=== PATIENT | male | born 1975 | race Caucasian/White ===

== ENCOUNTER 2016-11-21 13:15 | Emergency (ER) | payer OTHER ==
--- NOTE | 2016-11-21 14:26 | ED.PDOC ---
History of Present Illness - General Chief Complaint: Abdominal Pain Stated Complaint: Abdominal discomfort Time Seen by Provider: 11/21/16 14:08 Source: patient Exam Limitations: no limitations Additional Information: patient is s/p appendectomy - History of Present Illness Initial Comments: Patient presents complaining of abdominal pain for one day. I is LUQ , intermittent, cramping, non-radiating, sudden onset, no previous episodes. Patient had Irvin Fundiplication 6 years ago secondary to ulcerated hernia. He denies taking any antacids. Denies alcoho, tobacco, or recreational drugs. Has had nausea but no vomiting. He says he can't vomit because of the previous surgery. Had one episode of diarrhea today that was non-bloody. He does not feel like eating because of the nausea. No other symptoms. Timing/Duration: 24 hours Severity: mild Improving Factors: nothing Worsening Factors: nothing Associated Symptoms: denies symptoms Allergies/Adverse Reactions: Allergies NO KNOWN ALLERGY Allergy (Unverified 03/03/14 00:26) Home Medications: Ambulatory Orders NK [NK] 11/21/16 Review of Systems - Review of Systems Constitutional: States: no symptoms reported EENTM: States: no symptoms reported Respiratory: States: no symptoms reported Cardiology: States: no symptoms reported Gastrointestinal/Abdominal: States: see HPI Genitourinary: States: no symptoms reported Musculoskeletal: States: no symptoms reported Skin: States: no symptoms reported Neurological: States: no symptoms reported Endocrine: States: no symptoms reported Hematologic/Lymphatic: States: no symptoms reported Past Medical History (General) - Patient Medical History Hx Congestive Heart Failure: No Hx MRSA: No - Vaccination History Hx Influenza Vaccination: No Hx Pneumococcal Vaccination: No Family Medical History - Family History Mother Family History: Unknown Physical Exam - Physical Exam General Appearance: Alert Ears, Nose, Throat: normal ENT inspection Neck: non-tender, full range of motion, supple Respiratory: lungs clear Cardiovascular/Chest: regular rate, rhythm Gastrointestinal/Abdominal: normal bowel sounds, non tender, soft Extremity: no pedal edema Neurologic: no motor/sensory deficits Skin Exam: normal color Lymphatic: no adenopathy Progress - Progress Progress: 11/21/16 18:[address] abdomen and pelvis showed no obstruction nor definite acute disease. GI cocktail helped the patient siginificantly with his symptoms. He was discharged with orders to use Mylanta and Prilosec and to follow up with his primary care physician. Laboratory Tests 11/21/16 11/21/16 11/21/16 13:55 13:55 13:55 WBC 3.8 L RBC 4.12 L Hgb 12.9 L Hct 38.8 L MCV 94.2 H MCH 31.3 H MCHC 33.3 RDW 13.7 Plt Count 206 MPV 8.4 Absolute Neuts (auto) 1.60 L Absolute Lymphs (auto) 1.30 Absolute Monos (auto) 0.60 Absolute Eos (auto) 0.20 Absolute Basos (auto) 0.00 Neutrophils % 41.0 L Lymphocytes % 35.4 Monocytes % 16.6 H Eosinophils % 5.7 H Basophils % 1.3 Sodium 140 Potassium 3.2 L Chloride 109 Carbon Dioxide 27 Anion Gap 7.2 L BUN 10 Creatinine 0.76 BUN/Creatinine Ratio 13.2 Random Glucose 132 H Serum Osmolality 280.3 Calcium 8.3 L Total Bilirubin 0.2 AST 27 ALT 25 Alkaline Phosphatase 65 Serum Total Protein 6.3 L Albumin 3.5 Globulin 2.8 Albumin/Globulin Ratio 1.3 Lipase 33 Departure - Departure Clinical Impression: Abdominal pain, Gastritis Disposition: Discharge to Home or Self Care Condition: Good Departure Forms: ED Discharge - Pt. Copy, Patient Portal Self Enrollment Instructions: DI for Abdominal Pain-Adult Diet: resume usual diet Activity: increase activity as tolerated Referrals: Leonila Potter NP [Primary Care Provider] - 1-2 Weeks Home Medications: Ambulatory Orders NK [NK] 11/21/16 Additional Instructions: Use Mylanta and Prilosec as directed on the packaging. Follow up with your primary care provider in the next two weeks if pain does not resolve.
--- NOTE | 2016-11-21 14:43 | RAD ---
EXAM DESCRIPTION: Abdomen Flat Upright CLINICAL HISTORY: abdominal pain, hx of Irvin Fundiplication COMPARISON: None. FINDINGS: AP supine and upright views of the abdomen show a nonspecific, nonobstructive bowel gas pattern with no evidence for free intraperitoneal air. Mild small bowel air-fluid levels are seen. Mildly air-filled dilated colon throughout the abdomen is seen with scattered air-fluid levels. No obvious organomegaly is seen. No abnormal calcifications are seen in the expected location of the renal collecting systems. Visualized lung bases are unremarkable. IMPRESSION: Nonspecific abdominal series Findings could represent ileus. Electronically signed by: Joaquim Meraz MD 11/21/2016 2:43 PM CDT
--- NOTE | 2016-11-21 16:44 | CT ---
EXAM DESCRIPTION: Abdomen/Pelvis w/wo Contrast CLINICAL HISTORY: abdominal pain COMPARISON: None Available TECHNIQUE: Contiguous axial images of the abdomen and pelvis were obtained followed by reconstruction images. This exam was performed according to our departmental dose-optimization program, which includes automated exposure control, adjustment of the mA and/or kV according to patient size and/or use of iterative reconstruction technique. FINDINGS: The liver, spleen, pancreas and kidneys are within normal limits. There is no hydronephrosis or renal stones. The gallbladder is unremarkable by CT criteria. Adrenal glands are within normal limits. Aorta is of normal caliber and tapering. There is no free fluid in the abdomen or pelvis. There is no bowel obstruction. There is no stranding of the mesenteric fat to suggest an inflammatory response. There is no pericecal inflammation. Calcifications within the pelvis compatible with phleboliths. Air-fluid levels within the colon could be secondary to a diarrheal state. The appendix was not visualized. IMPRESSION: Air-fluid levels within the colon could be secondary to a diarrheal state. Electronically signed by: Justino Baker MD 11/21/2016 4:44 PM CDT
[2016-11-21] MEDS ORDERED: LIDOCAINE VIS-MYLANTA 30 ML UD PO ONE (17:38)
[2016-11-21 18:39] VITALS: O2SAT 100
[2016-11-21 18:40] VITALS: BP 115/84; TEMP 98
== END 2016-11-21 18:35 | disposition home or self-care (01) ==
LOC: ER 13:15
DX: K29.70 Gastritis, unspecified, without bleeding (principal)

== ENCOUNTER 2017-12-25 16:20 | Emergency (ER) | payer SELFPAY ==
[~2017-12-25 16:20] MED LIST: LIDOCAINE 1% 50 ML VIAL INJ ONE
[2017-12-25] MEDS ORDERED: POVIDONE IODINE 10 % 15 ML UD TOP ONE (16:28)
[2017-12-25 16:33] VITALS: TEMP 98.1; O2SAT 100
--- NOTE | 2017-12-25 16:43 | ED.PDOC ---
History of Present Illness - General Chief Complaint: Laceration Stated Complaint: Laceration to L 5th finger Time Seen by Provider: 12/25/17 16:39 Source: patient Exam Limitations: no limitations - History of Present Illness Initial Comments: John Vargas 42 y/o male stated that he was using pry bar working it slipped and hit left 5th digit sustaining lacareted wound 5th digit left with sharp pain. Timing/Duration: just prior to arrival Severity: mild Location: hands - finger 5th digit Improving Factors: rest Worsening Factors: movement Associated Symptoms: other - see hpi Allergies/Adverse Reactions: Allergies NO KNOWN ALLERGY Allergy (Verified 12/25/17 16:30) Home Medications: Ambulatory Orders Acetamin W/Cod #3 Tab [Tylenol w/CODEINE #3] 1 ea PO Q8HRS PRN #5 tab 12/25/17 Amoxicillin [Amoxil] 1,000 mg PO BID 5 Days #20 cap 12/25/17 Review of Systems - Review of Systems Musculoskeletal: States: see HPI Skin: States: see HPI All other Systems: Reviewed and Negative, No Change from Baseline Past Medical History (General) - Patient Medical History Hx Stroke: No Hx Congestive Heart Failure: No Hx Diabetes: No Hx Gastroesophageal Reflux: - Had a fundo-plycation Hx Cancer: No Hx Hepatitis C: No Hx MRSA: No Surgical History: appendectomy, other - Irvin fundoplication - Vaccination History Hx Tetanus, Diphtheria Vaccination: - 12/25/17 Hx Influenza Vaccination: No Hx Pneumococcal Vaccination: No - Social History Hx Tobacco Use: No Hx Chewing Tobacco Use: Yes - 2 cans per week Hx Alcohol Use: No Hx Substance Use: No Hx Substance Use Treatment: No Hx Depression: No Hx Physical Abuse: No Hx Emotional Abuse: No Hx Suspected Abuse: No Family Medical History - Family History Mother Family History: No Known Living Status: Still Living Physical Exam - Physical Exam General Appearance: Alert, Comfortable, No apparent distress Eyes, Ears, Nose, Throat Exam: normal ENT inspection Neck: supple, normal inspection Cardiovascular/Chest: regular rate, rhythm, no murmur Respiratory: lungs clear Gastrointestinal/Abdominal: non tender, soft Back Exam: normal inspection Extremity: no pedal edema, no calf tenderness Neurologic: no motor/sensory deficits, alert, oriented x 3 Skin Exam: warm/dry Skin Problem Location: other - laceration 5th digit left 1.5 cm bleeding Skin Character: other - see hpi Progress - Progress Progress: 12/25/17 16:45 Vital Signs - 8 hr 12/25/17 16:20 Temperature 98.1 F Pulse Rate [ 90 Left Radial] Respiratory 20 Rate Blood Pressure 123/76 [Right Arm] O2 Sat by Pulse 100 Oximetry - EKG/XRAY/CT XRAY: 5th digit left-no fracture Procedures - Laceration/Wound Repair Left Finger Wound Length (cm): 1.5 - 5th digit left Wound's Depth, Shape: irregular Wound Explored: no foreign body removed Irrigated w/ Saline (cc's): 30 Betadine Prep?: No - hibiclens Anesthesia: 1% Lidocaine Volume Anesthetic (cc's): 3 - metacarpal block Number of Sutures: 3 Sterile Dressing Applied?: Yes Departure - Departure Clinical Impression: Laceration of finger Qualifiers: Encounter type: initial encounter Finger: little finger Damage to nail status: without damage Foreign body presence: without foreign body Laterality: left Qualified Code(s): S61.217A - Laceration without foreign body of left little finger without damage to nail, initial encounter Time of Disposition: 17:18 Disposition: Discharge to Home or Self Care Condition: Good Departure Forms: ED Discharge - Pt. Copy, Patient Portal Self Enrollment Instructions: DI for Laceration Repair -- Hoda Referrals: Bud Bell MD [Primary Care Provider] - 1-2 Weeks Prescriptions: Acetamin W/Cod #3 Tab [Tylenol w/CODEINE #3] 1 ea PO Q8HRS PRN #5 tab PRN Reason: Pain Amoxicillin [Amoxil] 1,000 mg PO BID 5 Days #20 cap Home Medications: Ambulatory Orders Acetamin W/Cod #3 Tab [Tylenol w/CODEINE #3] 1 ea PO Q8HRS PRN #5 tab 12/25/17 Amoxicillin [Amoxil] 1,000 mg PO BID 5 Days #20 cap 12/25/17 Additional Instructions: REMOVAL OF HODA January 05/[facility] [place]
[2017-12-25] MEDS ORDERED: NEOMYCIN-BACITRACIN-POLYMYXIN 0.9 GM UD TOP ONE (17:03)
--- NOTE | 2017-12-25 17:03 | RAD ---
EXAM DESCRIPTION: Fingers,Left CLINICAL HISTORY: Lac L 5th digit COMPARISON: None. TECHNIQUE: 3 views left FINDINGS: No bone or joint abnormality is seen. Soft tissue swelling is seen adjacent to the proximal interphalangeal joint. No radiopaque foreign body is observed in the soft tissues. IMPRESSION: Soft tissue swelling is observed without evidence of fracturing. Electronically signed by: Randy Segura MD 12/25/2017 5:01 PM CDT
[2017-12-25] MEDS: AMOXICILLIN 500 MG CAP PO ONE (17:10)
[2017-12-25] MEDS: TETANUS,DIPHTHERIA,PERTUSSIS 1 EA SYG IM ONE (17:16)
[2017-12-25 17:53] VITALS: BP 102/84
== END 2017-12-25 17:40 | disposition home or self-care (01) ==
LOC: ER 16:20
DX: S61.217A Laceration without foreign body of left little finger without damage to nail, initial encounter (principal); Z23 Encounter for immunization; Z87.891 Personal history of nicotine dependence; W27.8XXA Contact with other nonpowered hand tool, initial encounter; Y92.9 Unspecified place or not applicable

== ENCOUNTER 2019-02-26 20:25 | Emergency (ER) | payer BC, SELFPAY ==
[2019-02-26] MEDS ORDERED: ONDANSETRON ODT 8 MG TAB SL ONE (20:34)
[2019-02-26] MEDS ORDERED: SODIUM CHLORIDE 0.9% 1000ML 1,000 ML IVS ONE (20:34)
[2019-02-26] MEDS ORDERED: ALUMINUM & MAGNESIUM HYDROXIDE 30 ML UD PO ONE (20:34)
[2019-02-26] MEDS ORDERED: PANTOPRAZOLE SODIUM IV 40 MG VIAL IV ONE (20:36)
[2019-02-26] MEDS ORDERED: DEXTROSE 50% 25 GM/50 ML SYG IV ONE (21:08)
[2019-02-26] MEDS ORDERED: DEXTROSE 10% 1000ML 1,000 ML IVS ONE (21:21)
[2019-02-26] MEDS ORDERED: DEXTROSE 10% 1000ML 1,000 ML IVS PRN (21:27)
--- NOTE | 2019-02-26 21:49 | RAD ---
EXAM: XR Abdomen 2 Views With XR Chest CLINICAL HISTORY: acute nv diaphoresis, hx of Irvin TECHNIQUE: Frontal view of the chest, frontal view of the abdomen/pelvis and upright or decubitus view of the abdomen. COMPARISON: No relevant prior studies available. FINDINGS: Limitations: None. Lungs: Unremarkable. No consolidation. Pleural space: Unremarkable. No pneumothorax. Heart: Unremarkable. No cardiomegaly. Mediastinum: Unremarkable. Intraperitoneal space: No free air. Gastrointestinal tract: Redundant sigmoid colon noted with moderate amounts of stool in the other colonic segments. No distention. There is an air-fluid level in the stomach. Bones/joints: Unremarkable. IMPRESSION: 1. Nonobstructive intestinal gas pattern. 2. No cardiopulmonary disease identified. Electronically signed by: Brooke Guevara MD 02/26/2019 9:48 PM CDT
--- NOTE | 2019-02-26 23:39 | ED.PDOC ---
History of Present Illness - General Chief Complaint: Exposure to Heat or Cold Stated Complaint: cold chils, nausea, dizzy Time Seen by Provider: 02/26/19 20:26 Source: patient Exam Limitations: no limitations - History of Present Illness Initial Comments: the patient is a 43-year-old male presenting to the emergency room secondary to an episode of weakness and shaking as well as nausea and vomiting came on just before he was about to eat supper. The patient is very thin. He was feeling okay prior to that. He is diaphoretic and a little bit dazed upon arrival. Blood sugar was 53 upon arrival. D10 was started as D50 is unavailable.he patient has been working outside and most of the day in the heat. No syncope. No chest pain. No abdominal pain. He has apparently had a Irvin fundoplication done in the past. He is not currently on any acid reducing medications. Timing/Duration: 1/2 hour Severity: moderate Improving Factors: nothing Worsening Factors: nothing Associated Symptoms: diaphoresis, loss of appetite, malaise, nausea/vomiting Allergies/Adverse Reactions: Allergies NO KNOWN ALLERGY Allergy (Verified 12/25/17 16:30) Home Medications: Ambulatory Orders Acetamin W/Cod #3 Tab [Tylenol w/CODEINE #3] 1 ea PO Q8HRS PRN #5 tab 12/25/17 Amoxicillin [Amoxil] 1,000 mg PO BID 5 Days #20 cap 12/25/17 Famotidine 20 mg PO BID #60 tab 02/26/19 Review of Systems - Review of Systems Constitutional: States: malaise, weakness - generalized EENTM: States: no symptoms reported Respiratory: States: no symptoms reported Cardiology: States: no symptoms reported Gastrointestinal/Abdominal: States: nausea, vomiting. Denies: abdominal pain, constipation, diarrhea Genitourinary: States: no symptoms reported Musculoskeletal: States: no symptoms reported Skin: States: no symptoms reported Neurological: States: tremors, weakness Endocrine: States: excessive sweating, flushing All other Systems: No Change from Baseline Past Medical History (General) - Patient Medical History Hx Stroke: No Hx Congestive Heart Failure: No Hx Diabetes: No Hx Gastroesophageal Reflux: - Had a fundo-plycation Hx Cancer: No Hx Hepatitis C: No Hx MRSA: No Surgical History: appendectomy, other - Vaccination History Hx Tetanus, Diphtheria Vaccination: No Hx Influenza Vaccination: No Hx Pneumococcal Vaccination: No - Social History Hx Tobacco Use: No Hx Chewing Tobacco Use: Yes - 2 cans per week Hx Alcohol Use: Yes Hx Substance Use: No Hx Substance Use Treatment: No Hx Depression: No Hx Physical Abuse: No Hx Emotional Abuse: No Hx Suspected Abuse: No Family Medical History - Family History Mother Family History: No Known Living Status: Still Living Physical Exam - Physical Exam General Appearance: Alert, Obvious distress, Other - diaphoretic and jittery Eye Exam: bilateral normal Ears, Nose, Throat: hearing grossly normal, normal ENT inspection Neck: full range of motion, supple Respiratory: lungs clear, normal breath sounds, no respiratory distress, no accessory muscle use Cardiovascular/Chest: normal peripheral pulses, regular rate, rhythm, no edema Peripheral Pulses: radial,right: 2+, radial,left: 2+, dorsalis pedis,right: 2+, dorsalis pedis,left: 2+ Gastrointestinal/Abdominal: non tender, soft Rectal Exam: deferred Back Exam: no CVA tenderness, no vertebral tenderness Extremity: non-tender, normal inspection, no pedal edema, normal capillary refill Neurologic: gas leak tester II-XII nml as tested, alert, oriented x 3, other - he has mildly dazed Skin Exam: diaphoresis Comments: Vital Signs - 24 hr 02/26/19 02/26/19 20:38 22:25 Temperature 96.5 F L 97.5 F L Pulse Rate [ 98 H 81 left] Respiratory 20 16 Rate Blood Pressure 166/89 138/75 [left] O2 Sat by Pulse 99 97 Oximetry Progress - Progress Progress: 02/26/19 23:41 the patient's a 43-year-old male presenting to the emergency room secondary to nausea and vomiting and diaphoresis. The patient is found to have hypoglycemia. This has been corrected with glucose supplementation. The patient needs to eat regularly. He also needs to avoid any stimulant type medication. He needs to keep well hydrated. No other significant pathology was found in the workup today. He is going to be placed on Pepcid twice daily for the next month for any ongoing gastritis. ER warnings were given. Keep routine follow-up with primary care doctor. - Results/Orders Results/Orders: Laboratory Tests 02/26/19 02/26/19 02/26/19 20:36 20:40 20:40 WBC RBC Hgb Hct MCV MCH MCHC RDW Plt Count MPV Absolute Neuts (auto) Absolute Lymphs (auto) Absolute Monos (auto) Absolute Eos (auto) Absolute Basos (auto) Neutrophils % Lymphocytes % Monocytes % Eosinophils % Basophils % PT INR PTT (SP) D-Dimer, Quantitative Sodium Potassium Chloride Carbon Dioxide Anion Gap BUN Creatinine BUN/Creatinine Ratio POC Glucose 53 L Random Glucose Serum Osmolality Lactic Acid 1.9 Calcium Magnesium Total Bilirubin AST ALT Alkaline Phosphatase Creatine Kinase CK-MB (CK-2) CK-MB (CK-2) % Troponin I B-Natriuretic Peptide Serum Total Protein Albumin Globulin Albumin/Globulin Ratio Amylase Lipase Urine Color Urine Appearance Urine pH Ur Specific [place] Urine Protein Urine Glucose (UA) Urine Ketones Urine Blood Urine Nitrite Urine Bilirubin Urine Urobilinogen Ur Leukocyte Esterase Urine RBC Urine WBC Ur Epithelial Cells Amorphous Sediment Urine Bacteria Urine Sperm Urine Opiates Screen Negative Urine Barbiturates Negative Ur Phencyclidine Scrn Negative U Amphetamin/Meth Scrn Positive H U Benzodiazepines Scrn Negative U Cocaine Metab Screen Negative U Cannabinoids Screen Negative 02/26/19 02/26/19 02/26/19 20:45 20:45 20:45 WBC 9.7 RBC 4.94 Hgb 16.0 Hct 47.3 MCV 95.6 H MCH 32.4 H MCHC 33.8 RDW 13.1 Plt Count 299 MPV 7.7 Absolute Neuts (auto) 5.40 Absolute Lymphs (auto) 2.90 Absolute Monos (auto) 0.90 H Absolute Eos (auto) 0.40 Absolute Basos (auto) 0.10 Neutrophils % 55.9 Lymphocytes % 30.0 Monocytes % 9.3 H Eosinophils % 3.6 Basophils % 1.2 PT 10.0 INR 1.00 PTT (SP) 23.3 D-Dimer, Quantitative 0.19 Sodium 140 Potassium 3.6 Chloride 103 Carbon Dioxide 25 Anion Gap 15.6 BUN 25 H Creatinine 1.27 BUN/Creatinine Ratio 19.7 POC Glucose Random Glucose 68 L Serum Osmolality 282.1 Lactic Acid Calcium 9.9 Magnesium 2.2 Total Bilirubin 0.8 AST 27 ALT 24 Alkaline Phosphatase 78 Creatine Kinase 132 CK-MB (CK-2) 3.6 CK-MB (CK-2) % Not Reportable Troponin I < 0.02 B-Natriuretic Peptide < 5.0 Serum Total Protein 8.3 H Albumin 4.9 Globulin 3.4 Albumin/Globulin Ratio 1.4 Amylase 67 Lipase 31 Urine Color Urine Appearance Urine pH Ur Specific [place] Urine Protein Urine Glucose (UA) Urine Ketones Urine Blood Urine Nitrite Urine Bilirubin Urine Urobilinogen Ur Leukocyte Esterase Urine RBC Urine WBC Ur Epithelial Cells Amorphous Sediment Urine Bacteria Urine Sperm Urine Opiates Screen Urine Barbiturates Ur Phencyclidine Scrn U Amphetamin/Meth Scrn U Benzodiazepines Scrn U Cocaine Metab Screen U Cannabinoids Screen 02/26/19 22:53 WBC RBC Hgb Hct MCV MCH MCHC RDW Plt Count MPV Absolute Neuts (auto) Absolute Lymphs (auto) Absolute Monos (auto) Absolute Eos (auto) Absolute Basos (auto) Neutrophils % Lymphocytes % Monocytes % Eosinophils % Basophils % PT INR PTT (SP) D-Dimer, Quantitative Sodium Potassium Chloride Carbon Dioxide Anion Gap BUN Creatinine BUN/Creatinine Ratio POC Glucose Random Glucose Serum Osmolality Lactic Acid Calcium Magnesium Total Bilirubin AST ALT Alkaline Phosphatase Creatine Kinase CK-MB (CK-2) CK-MB (CK-2) % Troponin I B-Natriuretic Peptide Serum Total Protein Albumin Globulin Albumin/Globulin Ratio Amylase Lipase Urine Color Yellow Urine Appearance Sl cloudy Urine pH 5.5 Ur Specific [place] 1.025 Urine Protein 30 Urine Glucose (UA) 500 H Urine Ketones Negative Urine Blood Negative Urine Nitrite Negative Urine Bilirubin Negative Urine Urobilinogen 0.2 Ur Leukocyte Esterase Negative Urine RBC 0 Urine WBC 0-1 Ur Epithelial Cells 0 Amorphous Sediment 2+ Urine Bacteria Rare Urine Sperm 10-20 Urine Opiates Screen Urine Barbiturates Ur Phencyclidine Scrn U Amphetamin/Meth Scrn U Benzodiazepines Scrn U Cocaine Metab Screen U Cannabinoids Screen acute abdominal series shows no acute pathology. No evidence of any perforati on. EKG shows normal sinus rhythm at 100 bpm. Mild axis deviation. Normal R-wave progression. No ST segment or T-wave changes indicative of acute ischemia. Normal QT interval. Departure - Departure Clinical Impression: Hypoglycemia Gastritis Qualifiers: Gastritis type: unspecified gastritis Chronicity: acute Gastritis bleeding: without bleeding Qualified Code(s): K29.00 - Acute gastritis without bleeding Disposition: Discharge to Home or Self Care Condition: Fair Departure Forms: ED Discharge - Pt. Copy, Patient Portal Self Enrollment Instructions: Low Blood Sugar in People Without Diabetes Diet: regular diet Activity: increase activity as tolerated Referrals: Bud Bell MD [Primary Care Provider] - 1-2 Weeks Prescriptions: Famotidine 20 mg PO BID #60 tab Home Medications: Ambulatory Orders Acetamin W/Cod #3 Tab [Tylenol w/CODEINE #3] 1 ea PO Q8HRS PRN #5 tab 12/25/17 Amoxicillin [Amoxil] 1,000 mg PO BID 5 Days #20 cap 12/25/17 Famotidine 20 mg PO BID #60 tab 02/26/19 Additional Instructions: the patient's a 43-year-old male presenting to the emergency room secondary to nausea and vomiting and diaphoresis. The patient is found to have hypoglycemia. This has been corrected with glucose supplementation. The patient needs to eat regularly. He also needs to avoid any stimulant type medication. He needs to keep well hydrated. No other significant pathology was found in the workup today. He is going to be placed on Pepcid twice daily for the next month for any ongoing gastritis. ER warnings were given. Keep routine follow-up with primary care doctor.
[2019-02-27 00:41] VITALS: BP 131/73; TEMP 97; O2SAT 97
== END 2019-02-27 00:35 | disposition home or self-care (01) ==
LOC: ER 20:25
DX: K29.00 Acute gastritis without bleeding (principal); E16.2 Hypoglycemia, unspecified; Z90.49 Acquired absence of other specified parts of digestive tract; Z87.891 Personal history of nicotine dependence
CPT/HCPCS: 36415; 74019; 80053; 80307; 81001; 82150; 82550; 82553; 82948; 83605; 83690; 83735; 83880; 84484; 85025; 85379; 85610; 85730; 93005; J7030; J7799